=== PATIENT | male | born 1995 | race Caucasian/White ===

== ENCOUNTER 2016-11-24 18:32 | Emergency (ER) | payer OTHER ==
[~2016-11-24] VITALS: Ht 177.8 cm; Wt 70.3 kg
[2016-11-24 18:32] VITALS: BP 134/76
[2016-11-24] MEDS ORDERED: CEPHALEXIN 500 MG CAP PO ONE (20:15)
[2016-11-24] MEDS ORDERED: KEFL500C7 PO (20:18)
== END 2016-11-24 20:33 | disposition home or self-care (01) ==
LOC: M ED 20:27
DX: L03.221 Cellulitis of neck (principal); L03.113 Cellulitis of right upper limb

== ENCOUNTER 2019-03-25 03:32 | Inpatient (IN) | payer OTHER ==
[~2019-03-25] VITALS: Ht 177.8 cm; Wt 67.3 kg
[2019-03-25] VITALS (9 sets, daily range): BP systolic 108–132; BP diastolic 53–59
[~2019-03-25 03:32] MED LIST: KEFL500C17 PO
[2019-03-25] MEDS ORDERED: METH4PACK PO (03:39)
[2019-03-25 04:10] LABS: BASO # 0.1 10^3/uL (0.0-0.2); BASO % 0.3 % (0.0-1.0); EOS # 0.1 10^3/uL (0.0-0.50); EOS % 0.2 % (0.0-3.0); HEMATOCRIT 48.9 % (42.0-52.0); LYMPH # 3.1 10^3/uL (1.5-6.5); LYMPH % 15.3 % (24.0-44.0); MEAN CORPUSCULAR HEMOGLOBIN 31.7 pg (27.0-33.0); MEAN CORPUSCULAR HGB CONC 34.8 g/dl (32.0-36.5); MEAN CORPUSCULAR VOLUME 91.2 fl (80.0-96.0); MONO # 1.3 10^3/uL (0.0-0.8); MONO % 6.2 % (0.0-5.0); NEUTROPHILS # 15.8 10^3/uL (1.8-7.7); NEUTROPHILS % 77.4 % (36.0-66.0); PLATELET COUNT, AUTOMATED 225 10^3/uL (150-450); RED BLOOD COUNT 5.36 10^6/uL (4.30-6.10); WHITE BLOOD COUNT 20.5 10^3/uL (4.0-10.0)
[2019-03-25] MEDS ORDERED: ONDANSETRON 4MG/2ML VIAL (J2405) IV ONE ×2 (04:15→06:15)
[2019-03-25] MEDS ORDERED: NS 1,000 ML IV ONE (04:15)
[2019-03-25 04:34] LABS: ALBUMIN 4.3 GM/DL (3.2-5.2); ALT/SGPT 31 U/L (12-78); BILIRUBIN,DIRECT 0.3 MG/DL (0.0-0.2); BLOOD UREA NITROGEN 16 MG/DL (7-18); CALCIUM LEVEL 9.3 MG/DL (8.5-10.1); CARBON DIOXIDE LEVEL 26 MEQ/L (21-32); CHLORIDE LEVEL 101 MEQ/L (98-107); CREATININE FOR GFR 1.43 MG/DL (0.70-1.30); GLOMERULAR FILTRATION RATE > 60.0 (>60); GLUCOSE, FASTING 160 MG/DL (70-100); LIPASE 607 U/L (73-393); POTASSIUM SERUM 3.5 MEQ/L (3.5-5.1); SODIUM LEVEL 137 MEQ/L (136-145); TOTAL PROTEIN 7.3 GM/DL (6.4-8.2)
[2019-03-25] MEDS ORDERED: ISOVUE-370 76% 100ML VIAL (Q9967) As Ordered ONE (04:37)
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
[2019-03-25] MEDS ORDERED: METOCLOPRAMIDE INJ 10MG/2ML VIAL (J2765) IV ONE (05:45)
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
[2019-03-25] MEDS ORDERED: metroNIDAZOLE 500 MG in APPROPRIATE DILUENT 1 EA IV ONE (06:15)
[2019-03-25] MEDS ORDERED: CIPROFLOXACIN 400 MG in APPROPRIATE DILUENT 1 EA IV ONE (06:15)
[2019-03-25] MEDS ORDERED: MORPHINE 4 MG/ML 1ML VIAL/SYRINGE (J2270) IV PRN ×3 (06:15→10:30)
[2019-03-25] MEDS ORDERED: PROPOFOL 200 MG/20 ML VIAL As Ordered ONE ×3 (07:27→07:31)
[2019-03-25] MEDS ORDERED: ROCURONIUM BROMIDE 50 MG/5 ML VIAL As Ordered ONE ×3 (07:28→09:00)
[2019-03-25] MEDS ORDERED: LIDOCAINE 2% INJ 100 MG/5 ML SDV (FOR ANES.) As Ordered ONE ×2 (07:28→07:29)
[2019-03-25] MEDS ORDERED: MIDAZOLAM INJ 2 MG/2 ML VIAL (J2250) As Ordered ONE (07:29)
[2019-03-25] MEDS ORDERED: dexameTHASONE 4 MG/ML 1ML VIAL (J1100) As Ordered ONE (07:29)
[2019-03-25] MEDS ORDERED: ONDANSETRON 4MG/2ML VIAL (J2405) As Ordered ONE (07:29)
[2019-03-25] MEDS ORDERED: fentaNYL 250 MCG/5 ML INJECTION (J3010) As Ordered ONE (07:29)
[2019-03-25] MEDS ORDERED: BUPIVACAINE HCL 0.25% 30 ML VIAL As Ordered ONE (07:45)
[2019-03-25] MEDS ORDERED: SUCCINYLCHOLINE 100 MG/5 ML SYRINGE (J0330) As Ordered ONE (09:01)
[2019-03-25] MEDS ORDERED: fentaNYL 100 MCG/2 ML INJECTION (J3010) As Ordered ONE (09:40)
[2019-03-25] MEDS ORDERED: ACETAMINOPHEN 1000MG 100ML IV BTL (OFIRMEV) (J0131 PER 10MG) As Ordered ONE (10:00)
[2019-03-25] MEDS ORDERED: SUGAMMADEX SODIUM 500 MG/5 ML VIAL (BRIDION) As Ordered ONE (10:03)
[2019-03-25] MEDS ORDERED: ONDANSETRON 4MG/2ML VIAL (J2405) IV PRN ×2 (10:30→11:00)
[2019-03-25] MEDS ORDERED: KETOROLAC 30 MG/ML VIAL (J1885) IV PRN (10:30)
[2019-03-25] MEDS ORDERED: METOCLOPRAMIDE INJ 10MG/2ML VIAL (J2765) IV PRN (10:30)
[2019-03-25] MEDS ORDERED: fentaNYL 100 MCG/2 ML INJECTION (J3010) IV PRN (11:00)
[2019-03-25] MEDS ORDERED: LR 1,000 ML IV SCH (11:00)
[2019-03-25] MEDS: PANTOPRAZOLE 40MG INJ (PROTONIX) (C9113) IV SCH ×2 (11:45→20:56)
[2019-03-25] MEDS: LR 1,000 ML IV SCH ×2 (11:45→17:46)
[2019-03-25] MEDS: SUCRALFATE 1 GM TAB PO SCH ×2 (13:25→17:47)
[2019-03-25] MEDS: metroNIDAZOLE 500 MG in APPROPRIATE DILUENT 1 EA IV SCH ×2 (15:48→23:00)
[2019-03-25] MEDS: ENOXAPARIN 40 MG/0.4 ML SYRINGE (J1650) SC SCH (17:47)
[2019-03-25] MEDS: CIPROFLOXACIN 400 MG in APPROPRIATE DILUENT 1 EA IV SCH (20:55)
[2019-03-26] VITALS: BP 121/56
[2019-03-26 04:00] VITALS: BP 111/56
[2019-03-26] MEDS: LR 1,000 ML IV SCH ×2 (04:26→23:36)
[2019-03-26 06:24] LABS: BASO % 0.4 % (0.0-1.0); EOS # 0.1 10^3/uL (0.0-0.50); EOS % 0.5 % (0.0-3.0); HEMATOCRIT 40.1 % (42.0-52.0); LYMPH # 2.4 10^3/uL (1.5-6.5); LYMPH % 24.2 % (24.0-44.0); MEAN CORPUSCULAR HEMOGLOBIN 31.3 pg (27.0-33.0); MEAN CORPUSCULAR HGB CONC 33.7 g/dl (32.0-36.5); MONO # 0.8 10^3/uL (0.0-0.8); MONO % 7.9 % (0.0-5.0); NEUTROPHILS # 6.5 10^3/uL (1.8-7.7); NEUTROPHILS % 66.8 % (36.0-66.0); PLATELET COUNT, AUTOMATED 147 10^3/uL (150-450); RED BLOOD COUNT 4.31 10^6/uL (4.30-6.10); WHITE BLOOD COUNT 9.7 10^3/uL (4.0-10.0)
[2019-03-26] MEDS: metroNIDAZOLE 500 MG in APPROPRIATE DILUENT 1 EA IV SCH ×3 (06:36→23:36)
[2019-03-26] MEDS: SUCRALFATE 1 GM TAB PO SCH ×5 (06:36→23:36)
[2019-03-26 06:38] LABS: HEMOGLOBIN 13.5 g/dl (13.5-17.5)
[2019-03-26 06:40] LABS: BLOOD UREA NITROGEN 14 MG/DL (7-18); CALCIUM LEVEL 8.6 MG/DL (8.5-10.1); CARBON DIOXIDE LEVEL 29 MEQ/L (21-32); CHLORIDE LEVEL 105 MEQ/L (98-107); CREATININE FOR GFR 1.22 MG/DL (0.70-1.30); GLOMERULAR FILTRATION RATE > 60.0 (>60); GLUCOSE, FASTING 85 MG/DL (70-100); POTASSIUM SERUM 3.7 MEQ/L (3.5-5.1); SODIUM LEVEL 140 MEQ/L (136-145)
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
[2019-03-26] MEDS: CIPROFLOXACIN 400 MG in APPROPRIATE DILUENT 1 EA IV SCH ×2 (09:00→20:22)
[2019-03-26] MEDS: PANTOPRAZOLE 40MG INJ (PROTONIX) (C9113) IV SCH ×2 (09:00→20:21)
[2019-03-26] MEDS: ACETAMINOPHEN TAB 650MG DOSE (2X325MG) PO PRN ×2 (09:01→15:04)
[2019-03-26 09:15] VITALS: BP 115/52
[2019-03-26 12:00] VITALS: BP 118/58
[2019-03-26 16:00] VITALS: BP 126/69
[2019-03-26] MEDS: ENOXAPARIN 40 MG/0.4 ML SYRINGE (J1650) SC SCH (17:36)
[2019-03-26 20:00] VITALS: BP 113/54
[2019-03-27] VITALS: BP 131/63
[2019-03-27 04:00] VITALS: BP 106/52
[2019-03-27] MEDS: metroNIDAZOLE 500 MG in APPROPRIATE DILUENT 1 EA IV SCH ×2 (06:03→14:57)
[2019-03-27] MEDS: SUCRALFATE 1 GM TAB PO SCH ×4 (06:03→23:42)
[2019-03-27 08:00] VITALS: BP 117/61
[2019-03-27] MEDS: PANTOPRAZOLE 40MG INJ (PROTONIX) (C9113) IV SCH ×2 (08:26→22:01)
[2019-03-27] MEDS: CIPROFLOXACIN 400 MG in APPROPRIATE DILUENT 1 EA IV SCH (08:27)
--- NOTE | 2019-03-27 08:48 | IPNPDOC ---
Subjective General Date/Time Seen The patient was seen on 03/27/19 at 08:47. Subject Chief Complaint/History The patient is a 23-year-old male admitted with a reason for visit of Perforated Viscus. Patient feels well, minimal abdominal discomfort. he denies any fuirther nausea. He is tolerating clear liquids Current Medications Current Medications Current Medications Medications (Trade) Dose Ordered Sig/Avtar Route PRN Reason Start Time Stop Time Status Last Admin Dose Admin Acetaminophen (Tylenol Tab) 650 mg Q4HP PRN PO MILD PAIN or TEMP > 101 03/25/19 10:30 03/26/19 15:04 Ciprofloxacin 400 mg/IV Miscellaneous Supplies 200 ml @ 200 mls/hr Q12H IV 03/25/19 21:00 03/27/19 08:27 Enoxaparin Sodium (Lovenox) 40 mg DAILY@1700 SC 03/25/19 17:00 03/26/19 17:36 Fentanyl Citrate (Sublimaze) 25 mcg Q5MP PRN IV MODERATE PAIN (PS 4-7) 03/25/19 11:00 03/25/19 12:00 DC Ketorolac Tromethamine (ToRADol) 30 mg Q6HP PRN IV MILD/MODERATE PAIN (PS 1-7) 03/25/19 10:30 03/26/19 09:20 DC 03/25/19 20:00 Lactated Ringer's 1,000 ml @ 50 mls/hr Q20H IV 03/25/19 10:24 03/26/19 23:36 Lactated Ringer's 1,000 ml @ 100 mls/hr Q10H IV 03/25/19 11:00 03/25/19 12:00 DC Metoclopramide HCl (REGLAN INJection) 10 mg Q6HP PRN IV NAUSEA OR VOMITING 03/25/19 10:30 03/26/19 09:20 DC Metronidazole 500 mg/IV Miscellaneous Supplies 100 ml @ 100 mls/hr Q8H IV 03/25/19 15:00 03/27/19 06:03 Morphine Sulfate (Morphine Sulfate Inj) 2 mg Q2HP PRN IV MODERATE/SEVERE PAIN (PS 5-10) 03/25/19 10:30 Morphine Sulfate (Morphine Sulfate Inj) 4 mg Q2HP PRN IV SEVERE PAIN (PS 8-10) 03/25/19 10:30 03/26/19 09:20 DC Morphine Sulfate (Morphine Sulfate Inj) 4 mg Q30M PRN IV SEVERE PAIN (PS 8-10) 03/25/19 06:15 03/25/19 21:25 DC 03/25/19 07:02 Ondansetron HCl (ZOFRAN INJection) 4 mg Q4HP PRN IV NAUSEA OR VOMITING 03/25/19 11:00 03/25/19 12:00 DC Ondansetron HCl (ZOFRAN INJection) 4 mg Q6HP PRN IV NAUSEA OR VOMITING 03/25/19 10:30 Pantoprazole Sodium (Protonix) 40 mg BID IV 03/25/19 09:00 03/27/19 08:26 Sucralfate (Carafate) 1 gm Q6H PO 03/25/19 12:00 03/27/19 06:03 Allergies Coded Allergies: Penicillins (Verified Allergy, Unknown, does not remember, 03/25/19) Objective Physical Examination Examination GENERAL APPEARANCE:looks very comfortable. SKIN: Warm and moist. HEENT: Normocephalic, atraumatic. [place] palpebral conjunctiva, anicteric sclerae. Lips and mucosa appear moist. NECK: Supple, no thyromegaly. No obvious jugular venous distention. LUNGS: Clear to auscultation bilaterally. No wheezing appreciated. HEART: No chest wall abnormalities. Regular rate and rhythm with no murmurs appreciated. ABDOMEN: Abdomen is flat, soft, nondistended. three lap port sites with dry dressings. Nontender on palpation. EXTREMITIES: no edema. Vital Signs Vital Signs Date Time Temp Pulse Resp B/P (MAP) Pulse Ox O2 Delivery O2 Flow Rate FiO2 03/27/19 08:00 98.0 58 16 117/61 (79) 98 03/25/19 10:50 3 03/25/19 07:45 Room Air I&Os I&O- Last 24 Hours up to 6 AM 03/27/19 06:00 Intake Total 3190 ml Output Total 900 ml Balance 2290 ml Laboratory Data Microbiology Microbiology 03/25/19 Blood Culture - Preliminary, Resulted No Growth after 48 hours. All Specime... 03/25/19 Blood Culture - Preliminary, Resulted No Growth after 48 hours. All Specime... Impression pod2 oversewing of perforated gastric ulcer advance diet continue with protonix bid Plan / VTE VTE Prophylaxis Ordered?: Yes MARILU STUBBS MD Mar 27, 2019 08:48
[2019-03-27 12:00] VITALS: BP 126/62
[2019-03-27 16:00] VITALS: BP 118/61
[2019-03-27] MEDS: ENOXAPARIN 40 MG/0.4 ML SYRINGE (J1650) SC SCH (17:45)
[2019-03-27] MEDS: diphenhydrAMINE 50 MG CAP PO PRN (19:08)
[2019-03-27 20:00] VITALS: BP 113/60
[2019-03-28] VITALS: BP 128/65
[2019-03-28] MEDS: diphenhydrAMINE 50 MG CAP PO PRN (02:47)
[2019-03-28] MEDS: SUCRALFATE 1 GM TAB PO SCH (05:52)
[2019-03-28 06:00] VITALS: BP 115/68
[2019-03-28] MEDS ORDERED: ACET1TAB55 PO (07:42)
[2019-03-28] MEDS ORDERED: BENA25CA4 PO (07:42)
[2019-03-28] MEDS ORDERED: SUCR1TA PO (07:42)
[2019-03-28] MEDS ORDERED: PROT1TAB2 PO (07:42)
[2019-03-28 08:00] VITALS: BP 122/66
[2019-03-28] MEDS: PANTOPRAZOLE 40MG INJ (PROTONIX) (C9113) IV SCH (08:13)
--- NOTE | 2019-03-30 10:01 | IPN ---
DATE: 03/28/2019 HISTORY: The patient is postoperative day #3 from laparoscopic repair of a perforated duodenal ulcer. He has been tolerating regular food since yesterday. He has developed another rash, which is a fairly diffuse blotchy red rash, more macular in characteristic. This is prominent on his left upper extremity, but also at his anterior axillary folds and on the chest and abdomen. His antibiotics were stopped last evening and he was provided some Benadryl for itching. He denies any nausea or vomiting and he is having excellent voiding. Vital signs: Show that he has been afebrile. His pulse is in the 60s to low 70s and his blood pressure is normal. Intake and output show that yesterday he had 1900 in and his urine output was not recorded but he had multiple voids during the day. He did have one bowel movement earlier in the day. PHYSICAL EXAMINATION: Shows that the patient appears comfortable. Skin is warm and dry, but he does have some scattered rash. His extensive rash in right lower extremity attributed to poison IV previously, has all dried up and appears to be effectively healed. His abdomen shows three small incisions in the upper abdomen. There appears to be a small hematoma beneath the skin of the right sided port site. He has active bowel sounds and the abdomen is soft and without any undue tenderness. IMPRESSION The patient is doing well 3 days postop from his perforated ulcer and appears ready for discharge. PLAN The patient be discharged home today. I will provide him with prescriptions for Protonix 40 mg twice daily for a month with two refills. A prescription for Carafate 1 gram by mouth (p.o.) before food and at bedtime for 2 weeks will be provided as well. I will give him a prescription also for some Benadryl and Tylenol that he can use for itching or discomfort as needed. He was advised to avoid any nonsteroidal anti-inflammatory medications and to stop any of his steroids that he had been taking. I have provided him a note recommending that he be placed on convalescent leave or some other off duty status for about 2 weeks. He can pursue light activities, but should avoid any strenuous activities for now. He should contact my office for any problems. I will otherwise plan on seeing him back in 10 days to 2 weeks. I would anticipate that he should have a followup endoscopy in like 6-8 weeks to ensure ulcer healing.
--- NOTE | 2019-03-30 10:01 | IPN ---
DATE: 03/26/2019 HISTORY: The patient is postop day #1 from a laparoscopic closure of a perforated duodenal ulcer. He has done very well since his surgery yesterday morning. He has had no nausea or vomiting and reports significantly decreased discomfort. Vital signs show that he has been afebrile since his surgery. His pulse has been in the 60s and 70s. Blood pressure is good. Intake and output show that yesterday he had 3600 in with 2200 out. He has been voiding without any difficulty. PHYSICAL EXAMINATION: The patient is alert and oriented. Skin is warm and dry. Neck is supple. Heart exam shows a regular rhythm. Lungs are clear. The abdomen is flat. He has three small dressings on the upper abdomen. He has active bowel sounds and the abdomen is soft without any undue tenderness. LABORATORY STUDIES: CBC shows a white count of 10, hemoglobin 13, hematocrit of 40 and platelet count of 147,000. Differential count shows 67% neutrophils, 24% lymphocytes and 8% monocytes. A chemistry profile showed a sodium of 140, potassium 3.7, chloride 105, CO2 of 29, BUN of 14, creatinine 1.2 and a glucose of 85. IMPRESSION: The patient is doing extremely well postop day #1 from a laparoscopic repair of a perforated duodenal ulcer. PLAN: The patient will be allowed to take some clear liquids today. I encouraged him to start very slowly and if he develops any nausea or fullness that he should just stop. If he tolerates the clear liquids well we will saline lock his IV. I will continue his ciprofloxacin and Flagyl for now. Dr. Farnsworth will be covering for the next 36 hours approximately and I will be back to see the patient on the 03/28/2019.
== END 2019-03-28 09:50 | disposition home or self-care (01) | DRG 328 ==
LOC: M ED 03:32 → M ED INP 07:28 → M PED 11:45
PROVIDERS: ADMIT Surgery; ATTEND Surgery
PROC: 0DQ94ZZ Repair Duodenum, Percutaneous Endoscopic Approach (ICD-10-PCS; principal; 2019-03-25 07:32)
DX: K26.5 Chronic or unspecified duodenal ulcer with perforation (principal); R21 Rash and other nonspecific skin eruption

== ENCOUNTER 2019-05-10 13:11 | Day surgery (SDC) | payer OTHER ==
[~2019-05-10] VITALS: Ht 177.8 cm; Wt 65.8 kg
[2019-05-10] MEDS: NS 1,000 ML IV ONE (06:00)
[~2019-05-10 13:11] MED LIST changes: +ACET1TAB55 PO; +BENA25CA4 PO; +METH4PACK PO; +PROT1TAB2 PO; +SUCR1TA PO
[2019-05-10] MEDS ORDERED: LIDOCAINE 2% INJ 100 MG/5 ML SDV (FOR ANES.) As Ordered ONE (14:47)
[2019-05-10] MEDS ORDERED: PROPOFOL 200 MG/20 ML VIAL As Ordered ONE ×2 (14:47→15:05)
--- NOTE | 2019-05-10 15:23 | ROOR ---
Patient Name: Myron Tang Procedure Date: 05/10/2019 2:58 PM Date of : 1995 Age: 23 Room: [facility] Gender: Male Note Status: Finalized Procedure: Upper GI endoscopy Indications: Follow-up of acute peptic ulcer with perforation Providers: Sven Lowe MD Referring MD: TENISHA STEVEN MD Requesting Provider: Medicines: Monitored Anesthesia Care Complications: No immediate complications. Procedure: Pre-Anesthesia Assessment: - Prior to the procedure, a History and Physical was performed, and patient medications and allergies were reviewed. The patient is competent. The risks and benefits of the procedure and the sedation options and risks were discussed with the patient. All questions were answered and informed consent was obtained. Patient identification and proposed procedure were verified by the physician, the nurse and the anesthesiologist in the procedure room. Mental Status Examination: alert and oriented. Airway Examination: normal oropharyngeal airway and neck mobility. CV Examination: regular rate and rhythm. Prophylactic Antibiotics: The patient does not require prophylactic antibiotics. Prior Anticoagulants: The patient has taken no previous anticoagulant or antiplatelet agents. ASA Grade Assessment: II - A patient with mild systemic disease. After reviewing the risks and benefits, the patient was deemed in satisfactory condition to undergo the procedure. The anesthesia plan was to use monitored anesthesia care (MAC). Immediately prior to administration of medications, the patient was re-assessed for adequacy to receive sedatives. The heart rate, respiratory rate, oxygen saturations, blood pressure, adequacy of pulmonary ventilation, and response to care were monitored throughout the procedure. The physical status of the patient was re-assessed after the procedure. The Endoscope was introduced through the mouth, and advanced to the second part of duodenum. The upper GI endoscopy was accomplished without difficulty. The patient tolerated the procedure well. Findings: The examined esophagus was normal. The entire examined stomach was normal. The first portion of the duodenum and second portion of the duodenum were normal. Biopsies were taken with a cold forceps for Helicobacter pylori testing. No evidence of his prior perforated ulcer was found and he had no ulcer now. Impression: - Normal esophagus. - Normal stomach. - Normal first portion of the duodenum and second portion of the duodenum. Biopsied. Recommendation: - Discharge patient to home. - Resume previous diet. - Continue present medications. - Await pathology results. - Return to nurse practitioner in 1 week. Sven Lowe MD Sven Lowe MD 05/10/2019 3:23:06 PM Electronically signed by Sven Lowe MD Number of Addenda: 0 Note Initiated On: 05/10/2019 2:58 PM Estimated Blood Loss: Estimated blood loss was minimal.
[2019-05-10 15:45] VITALS: BP 123/66
== END 2019-05-10 15:59 | disposition home or self-care (01) ==
LOC: M OPP 13:11
PROVIDERS: ATTEND Surgery
DX: K27.1 Acute peptic ulcer, site unspecified, with perforation (principal); Z09 Encounter for follow-up examination after completed treatment for conditions other than malignant neoplasm; Z79.899 Other long term (current) drug therapy; Z88.0 Allergy status to penicillin; Z88.1 Allergy status to other antibiotic agents